=== PATIENT | male | born 1930 | race Caucasian/White ===

== ENCOUNTER 2020-03-26 11:48 | Inpatient (IN) | payer OTHER ==
[~2020-03-26] VITALS: Ht 172.7 cm; Wt 77.6 kg
[~2020-03-26 11:48] MED LIST: AMLO10TA80 PO; ATOR-2 MT; BENA20TA10 MT; CYM20 PO; DONE5TAB33 PO; MULT-1146 PO; NIAC500T2 PO; OXYB5TAB16 PO; QUET25TA PO; TRAM50TA3 PO
[2020-03-26 13:20] LABS: CHLORIDE 108 mEq/L (98-107)
[2020-03-26 13:30] LABS: BASOPHILS % 0.4 % (0.0-2.0); HEMOGLOBIN. 13.2 g/dL (14.0-18.0); LYMPHOCYTES % 32.6 % (20.0-50.0); MEAN CORPUSCULAR HEMOGLOBIN 34.5 pg (28.0-32.0); MEAN CORPUSCULAR VOLUME 96.3 fL (80.0-94.0); MEAN PLATELET VOLUME 7.6 fl (7.4-10.4); MONOCYTES % 8.2 % (2.0-8.0); NEUTROPHILS % 57.8 % (40.0-76.0); PLATELET 184 x1000/uL (130-400); RED BLOOD CELL COUNT 3.84 mill/uL (4.7-6.1); RED CELL DISTRIBUTION WIDTH 14.1 % (11.6-14.6)
[2020-03-26] MEDS ORDERED: ASPIRIN 81MG TABLET PO ONE (16:15)
[2020-03-26] MEDS ORDERED: ENOXAPARIN 60MG/0.6ML SYR SUBCUT NR (16:30)
[2020-03-26] MEDS ORDERED: ASPIRIN 81MG TABLET PO NR (16:30)
[2020-03-26] MEDS: CLOPIDOGREL 75MG TABLET PO SCH (18:00)
[2020-03-26 20:38] VITALS: BP 151/82
[2020-03-26] MEDS ORDERED: ATORVASTATIN CALCIUM 40MG TABLET PO SCH (21:00)
[2020-03-26 21:21] VITALS: BP 151/82
[2020-03-26] MEDS: BENAZEPRIL 10MG TABLET PO SCH (21:32)
[2020-03-26] MEDS: ATORVASTATIN CALCIUM 40MG TABLET PO SCH (21:32)
[2020-03-26] MEDS: AMLODIPINE 5MG TABLET PO SCH (21:32)
[2020-03-26] MEDS ORDERED: HYDR-3282 PO (23:17)
[2020-03-26] MEDS ORDERED: OMEP40CA12 PO (23:20)
[2020-03-26] MEDS ORDERED: GABA-529 PO (23:20)
[2020-03-26 23:23] LABS: D-DIMER 1.18 mg/L FEU (<0.50); INR 1.1; PARTIAL THROMBOPLASTIN TIME 33.8 sec (23.4-31.0); PROTHROMBIN TIME 11.2 sec (9.6-11.0)
[2020-03-26 23:33] VITALS: BP 139/85
[2020-03-27] VITALS (7 sets, daily range): BP systolic 103–168; BP diastolic 54–84
[2020-03-27] MEDS ORDERED: SODIUM CHLORIDE 0.45% 500 ML IV ONE (06:05)
[2020-03-27 06:50] LABS: BASOPHILS % 0.5 % (0.0-2.0); EOSINOPHILS % 0.8 % (0.0-5.0); HEMATOCRIT. 38.1 % (42.0-52.0); HEMOGLOBIN. 13.5 g/dL (14.0-18.0); LYMPHOCYTES % 25.5 % (20.0-50.0); MEAN CORPUSCULAR HEMOGLOBIN 34.3 pg (28.0-32.0); MEAN CORPUSCULAR VOLUME 96.8 fL (80.0-94.0); MEAN PLATELET VOLUME 7.2 fl (7.4-10.4); MONOCYTES % 8.4 % (2.0-8.0); NEUTROPHILS % 64.8 % (40.0-76.0); PLATELET 190 x1000/uL (130-400); RED BLOOD CELL COUNT 3.94 mill/uL (4.7-6.1); RED CELL DISTRIBUTION WIDTH 14.2 % (11.6-14.6)
[2020-03-27 06:57] LABS: CHLORIDE 110 mEq/L (98-107)
[2020-03-27] MEDS: OMEPRAZOLE 20MG CAPSULE EXTENDED RELEASE PO SCH (07:40)
[2020-03-27] MEDS ORDERED: LIDOCAINE HCL 1% 20ML VIAL (Pyxis) INJ ONE (08:42)
[2020-03-27] MEDS ORDERED: IODIXANOL 320MG/ML 200ML BOTTLE ONE (08:42)
[2020-03-27] MEDS: CLOPIDOGREL 75MG TABLET PO SCH (09:00)
[2020-03-27] MEDS: AMLODIPINE 5MG TABLET PO SCH ×2 (09:00→20:19)
[2020-03-27] MEDS: BENAZEPRIL 10MG TABLET PO SCH (09:00)
[2020-03-27] MEDS ORDERED: ASPIRIN/SOD BICARB/CITRIC ACID 324MG TAB EFF ONE (09:55)
[2020-03-27] MEDS ORDERED: FENTANYL CITRATE/PF 50MCG/ML 2ML VIAL ONE ×2 (10:00→10:17)
[2020-03-27] MEDS ORDERED: MIDAZOLAM HCL 2 MG/2 ML VIAL ONE (10:00)
[2020-03-27] MEDS ORDERED: IODIXANOL 320MG/ML 100 ML BOTTLE IV ONE (10:52)
[2020-03-27] MEDS ORDERED: CLOPIDOGREL 75MG TABLET ONE (10:55)
[2020-03-27] MEDS ORDERED: ASPIRIN 325MG EC TABLET PO ONE (10:55)
[2020-03-27] MEDS ORDERED: MORPHINE SULFATE 2 MG/ML CPJ (NOT FOR IM USE) IV PRN (11:15)
[2020-03-27] MEDS ORDERED: CLOPIDOGREL 75MG TABLET PO NR (11:15)
[2020-03-27] MEDS ORDERED: SODIUM CHLORIDE 0.45% 1,000 ML IV ONE (11:15)
[2020-03-27] MEDS ORDERED: ONDANSETRON HCL 4MG/2ML INJ IV PRN (11:15)
[2020-03-27] MEDS ORDERED: ACETAMINOPHEN 325MG TABLET PO PRN (11:15)
[2020-03-27] MEDS ORDERED: ATROPINE SULFATE 1MG/10ML SYR IV PRN (11:15)
[2020-03-27] MEDS: ATORVASTATIN CALCIUM 40MG TABLET PO SCH (20:19)
[2020-03-28] VITALS (8 sets, daily range): BP systolic 93–140; BP diastolic 52–87
[2020-03-28] MEDS: OMEPRAZOLE 20MG CAPSULE EXTENDED RELEASE PO SCH (05:57)
[2020-03-28 08:03] LABS: BASOPHILS % 0.2 % (0.0-2.0); EOSINOPHILS % 0.9 % (0.0-5.0); HEMATOCRIT. 37.1 % (42.0-52.0); LYMPHOCYTES % 30.4 % (20.0-50.0); MEAN CORPUSCULAR HEMOGLOBIN 33.9 pg (28.0-32.0); MEAN CORPUSCULAR VOLUME 96.7 fL (80.0-94.0); MEAN PLATELET VOLUME 7.3 fl (7.4-10.4); MONOCYTES % 9.5 % (2.0-8.0); PLATELET 186 x1000/uL (130-400); RED BLOOD CELL COUNT 3.84 mill/uL (4.7-6.1); RED CELL DISTRIBUTION WIDTH 14.3 % (11.6-14.6)
[2020-03-28] MEDS: BENAZEPRIL 10MG TABLET PO SCH (08:28)
[2020-03-28] MEDS: CLOPIDOGREL 75MG TABLET PO SCH (08:29)
[2020-03-28] MEDS: AMLODIPINE 5MG TABLET PO SCH (08:29)
[2020-03-28 08:30] LABS: CHLORIDE 111 mEq/L (98-107)
[2020-03-28] MEDS ORDERED: ASPIRIN 81MG TABLET PO SCH (09:00)
[2020-03-28] MEDS ORDERED: CLOP75TA4 MT (12:42)
[2020-03-28] MEDS ORDERED: ASPI-986 PO (12:42)
== END 2020-03-28 13:49 | disposition home or self-care (01) | DRG 247 ==
LOC: ER 11:48 → 3WST 16:00 → ENRESERV 18:52 → 7WST 22:59 → 3WST 03-27 11:35
PROVIDERS: ADMIT Internal Medicine; ATTEND Internal Medicine
PROC: 027034Z Dilation of Coronary Artery, One Artery with Drug-eluting Intraluminal Device, Percutaneous Approach (ICD-10-PCS; principal; 2020-03-27)
PROC: 4A023N7 Measurement of Cardiac Sampling and Pressure, Left Heart, Percutaneous Approach (ICD-10-PCS; 2020-03-27)
PROC: B2111ZZ Fluoroscopy of Multiple Coronary Arteries using Low Osmolar Contrast (ICD-10-PCS; 2020-03-27)
PROC: B2121ZZ Fluoroscopy of Single Coronary Artery Bypass Graft using Low Osmolar Contrast (ICD-10-PCS; 2020-03-27)
PROC: 4A033BC Measurement of Arterial Pressure, Coronary, Percutaneous Approach (ICD-10-PCS; 2020-03-27)
DX: T82.855A Stenosis of coronary artery stent, initial encounter (principal); E78.5 Hyperlipidemia, unspecified; D64.9 Anemia, unspecified; G30.9 Alzheimer's disease, unspecified; F02.80 Dementia in other diseases classified elsewhere, unspecified severity, without behavioral disturbance, psychotic disturbance, mood disturbance, and anxiety; I25.10 Atherosclerotic heart disease of native coronary artery without angina pectoris; K21.9 Gastro-esophageal reflux disease without esophagitis; I10 Essential (primary) hypertension; T82.858A Stenosis of other vascular prosthetic devices, implants and grafts, initial encounter; Y83.2 Surgical operation with anastomosis, bypass or graft as the cause of abnormal reaction of the patient, or of later complication, without mention of misadventure at the time of the procedure; Y83.1 Surgical operation with implant of artificial internal device as the cause of abnormal reaction of the patient, or of later complication, without mention of misadventure at the time of the procedure; Z96.642 Presence of left artificial hip joint; I25.82 Chronic total occlusion of coronary artery; Z85.46 Personal history of malignant neoplasm of prostate; Z95.1 Presence of aortocoronary bypass graft; Z87.891 Personal history of nicotine dependence; Z79.02 Long term (current) use of antithrombotics/antiplatelets; Z90.49 Acquired absence of other specified parts of digestive tract; Z92.3 Personal history of irradiation; Z79.82 Long term (current) use of aspirin; Z79.899 Other long term (current) drug therapy; Y92.89 Other specified places as the place of occurrence of the external cause; Z98.49 Cataract extraction status, unspecified eye; Z95.5 Presence of coronary angioplasty implant and graft; Z03.818 Encounter for observation for suspected exposure to other biological agents ruled out
CPT/HCPCS: 36415; 71045; 80048; 80053; 82962; 83880; 84484; 85025; 85347; 85379; 92928; 93005; 93458; 93571; 99285; C1769; C1874; C1887; C1893; J1644; J1650; J2250; J3010; J3490; Q9967; U0003-CS